=== PATIENT | male | born 2000 | race Caucasian/White ===

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

== ENCOUNTER → 2022-07-07 | Outpatient (CLI) | payer OTHER, SELFPAY ==
[2022-07-07 15:33] LABS: Hematocrit 42.5 % (40-54); Hemoglobin 13.8 g/dL (13.0-16.5); Mean Corp Hgb Conc 32.5 g/dL (32-36); Mean Corpuscular Hgb 29.9 pg (27.0-32.0); Mean Platelet Vol. 9.7 fl (6.2-12.0); Platelet Count 263 K/mm3 (150-450); RBC Distribution Width CV 12.1 % (11.6-14.6); RBC Distribution Width SD 41.1 fl (35.1-43.9); Red Blood Count 4.62 M/mm3 (4.6-6.2); White Blood Count 5.1 K/mm3 (4.4-11.0)
[2022-07-07 16:35] LABS: Anion Gap 4 (5-15); BUN 21 mg/dL (7-18); BUN/Creat Ratio 19.8 RATIO (10-20); Calcium,Total 9.5 mg/dL (8.5-10.1); Chloride 105 mmol/L (98-107); Creatinine, Serum 1.06 mg/dL (0.70-1.30); EST Glomerular Filtration Rate 94 mL/min (>60); Est Glom Filt Rate - Afr Amer 114 mL/min (>60); Ferritin 19 ng/mL (26-388); Glucose 87 mg/dL (74-106); Iron 67 ug/dL (65-175); Magnesium 2.3 mg/dL (1.6-2.6); Potassium 4.2 mmol/L (3.5-5.1); Sodium Level 139 mmol/L (136-145); Thyroid Stim Hormone (TSH) 1.73 uIU/mL (0.358-3.74)
== END | disposition home or self-care (01) ==
LOC: MFPLAB 13:43
PROVIDERS: PCP Family Medicine; Visit Provider Family Medicine
DX: R00.2 Palpitations (principal); D64.9 Anemia, unspecified
CPT/HCPCS: 36415; 80048; 82728; 83540; 83735; 84443; 85027

== ENCOUNTER → 2023-01-18 | Outpatient (CLI) | payer OTHER, SELFPAY ==
[2023-01-18 15:40] LABS: Hematocrit 44.2 % (40-54); Hemoglobin 14.2 g/dL (13.0-16.5); Mean Corp Hgb Conc 32.1 g/dL (32-36); Mean Corpuscular Hgb 30.1 pg (27.0-32.0); Mean Corpuscular Volume 93.8 fL (80-94); Mean Platelet Vol. 10.2 fl (6.2-12.0); Platelet Count 263 K/mm3 (150-450); RBC Distribution Width CV 11.9 % (11.6-14.6); RBC Distribution Width SD 41.1 fl (35.1-43.9); Red Blood Count 4.71 M/mm3 (4.6-6.2); White Blood Count 4.4 K/mm3 (4.4-11.0)
[2023-01-18 16:09] LABS: Ferritin 17 ng/mL (26-388)
== END | disposition home or self-care (01) ==
PROVIDERS: PCP Family Medicine; Referring Provider Family Medicine; Visit Provider Family Medicine
DX: D64.9 Anemia, unspecified (principal)
CPT/HCPCS: 36415; 82728; 85027

== ENCOUNTER → 2023-06-27 | Outpatient (CLI) | payer OTHER, SELFPAY ==
[2023-06-27 17:39] LABS: Absolute Lymphocyte Count 1.72 X10^3/uL (0.83-4.51); Absolute Neutrophil Count 2.7 X10^3/uL (2.0-7.7); Basophil# 0.03 X10^3/uL; Basophil% 0.6 % (0-1); Eosinophil# 0.06 X10^3/uL; Eosinophils% 1.2 % (0-5); Hematocrit 42.8 % (40-54); Hemoglobin 13.7 g/dL (13.0-16.5); Lymphocyte # 1.72 X10^3/ul (0.83-4.51); Lymphocyte % 34.6 % (19-41); Mean Corpuscular Hgb 29.7 pg (27.0-32.0); Mean Corpuscular Volume 92.6 fL (80-94); Mean Platelet Vol. 9.5 fl (6.2-12.0); Monocyte# 0.47 X10^3/uL; Monocyte% 9.5 % (0-10); NRBC Flagged by Analyzer 0 % (0-5); Neutrophil # 2.68 X10^3/uL (2.7-7.7); Neutrophil % 53.9 % (47-70); Platelet Count 276 K/mm3 (150-450); RBC Distribution Width CV 12.3 % (11.6-14.6); RBC Distribution Width SD 41.8 fl (35.1-43.9); Red Blood Count 4.62 M/mm3 (4.6-6.2)
[2023-06-27 17:47] LABS: Ferritin 25 ng/mL (26-388); Iron 98 ug/dL (65-175)
== END | disposition home or self-care (01) ==
LOC: MFPLAB 16:46
PROVIDERS: PCP Family Medicine; Visit Provider Family Medicine
DX: D64.9 Anemia, unspecified (principal)
CPT/HCPCS: 36415; 82728; 83540; 85025

== ENCOUNTER → 2024-01-22 | Outpatient (CLI) | payer OTHER, SELFPAY ==
[2024-01-22 17:47] LABS: Hematocrit 42.4 % (40-54); Mean Corpuscular Hgb 30.7 pg (27.0-32.0); Mean Platelet Vol. 9.6 fl (6.2-12.0); Platelet Count 272 K/mm3 (150-450); RBC Distribution Width CV 11.9 % (11.6-14.6); RBC Distribution Width SD 40.7 fl (35.1-43.9); Red Blood Count 4.56 M/mm3 (4.6-6.2); White Blood Count 4.8 K/mm3 (4.4-11.0)
[2024-01-22 18:06] LABS: Ferritin 35 ng/mL (26-388); Iron 75 ug/dL (65-175)
[2024-01-24 17:08] LABS: Deamidated Gliadin IgA 4 units (0-19); Deamidated Gliadin IgG 2 units (0-19); Endomysial Antibody IgA Negative (Negative); Immunoglobulin A 204 mg/dL (90-386); t-Transglutaminase IgA <2 U/mL (0-3)
== END | disposition home or self-care (01) ==
LOC: MFPLAB 15:27
PROVIDERS: PCP Family Medicine; Visit Provider Family Medicine
DX: Z02.5 Encounter for examination for participation in sport (principal); D64.9 Anemia, unspecified
CPT/HCPCS: 36415; 82728; 82784; 83516; 83540; 85027; 86255

== ENCOUNTER → 2025-01-29 | Outpatient (CLI) | payer OTHER, SELFPAY ==
[2025-01-29 17:50] LABS: Hematocrit 42.3 % (40-54); Hemoglobin 14.1 g/dL (13.0-16.5); Immature Granulocytes Count 0.010 X10^3/uL (0.0-0.0); Mean Corp Hgb Conc 33.3 g/dL (32-36); Mean Corpuscular Volume 91.8 fL (80-94); Mean Platelet Vol. 9.4 fl (6.2-12.0); NRBC Flagged by Analyzer 0 % (0-5); Platelet Count 280 K/mm3 (150-450); RBC Distribution Width CV 12.1 % (11.6-14.6); RBC Distribution Width SD 40.5 fl (35.1-43.9); Red Blood Count 4.61 M/mm3 (4.6-6.2); White Blood Count 6.2 K/mm3 (4.4-11.0)
[2025-01-29 19:04] LABS: Ferritin 41 ng/mL (37-417)
--- OUTSIDE RECORDS SUMMARY | 2025-01-29 21:09 | XMS RPT_ITS | CCD ---
Author Organization [facility] ion Partnership [facility] Care Team Providers Care Classroom Instructional Aide Name Role Phone Yesenia Coleman Primary Care Provider YESENIA COLEMAN Primary Care Unavailab ANGELINE Son Attending Unavailable Prashanth Shaffer Primary Care Unavailable Prashanth Shaffer Attending Unavailable Prashanth Shaffer Primary Care Unavailable Prashanth Shaffer Attending Unavailable Allergies Allergy Classification Reported Allergen(s) Allergy Type Date of Onset Reaction(s) Facility (3 sources) Seasonal allergy; Translations: [SEASONAL ALLERGIES] Propensity to adverse reactions 03-17-2009 Intolerance [facility] Work Phone: Medications Current Medications Medication Drug Class(es) Dates Sig (Normalized) Sig (Original) azithromycin 500 mg oral tablet (1 source) Macrolide Antimicrobial Start: 04-29-2023 End: 05-04-2023 take 1 tablet by mouth once daily azithromycin (ZITHROMAX) 500 mg tablet Indications: Bronchitis Take 1 tablet by mouth once daily for 5 days. 5 tablet 0 04/29/2023 05/04/2023 Active Comment on above: Take 1 tablet by [facility] once daily for 5 days. cetirizine hydrochloride 10 mg oral tablet (2 sources) Histamine-1 Receptor Antagonist Start: 04-26-2017 take 1 tablet by mouth once daily Cetirizine (Zyrtec) 10 MG tablet Active 10 MG PO DAILY April 25, 2017 11:00pm dexamethasone 4 mg oral tablet (1 source) Corticosteroid Start: 04-29-2023 End: 05-03-2023 take 1 tablet by mouth once daily dexAMETHasone (DECADRON) 4 mg tablet Indications: Bronchitis Take 1 tablet by mouth once daily for 4 days. 4 tablet 0 04/29/2023 05/03/2023 Active Comment on above: Take 1 tablet by david th once daily for 4 days. Completed/Discontinued Medications Medication Drug Class(es) Dates Sig (Normalized) Sig (Original) [id number] actuat albuterol 0.09 mg/actuat metered dose inhaler (4 sources) beta2-Adrenergic Agonist Start: 11-20-2015 take 2 puff(s) by inhalation every four hours as needed for wheezing albuterol HFA (VENTOLIN HFA) 90 mcg/actuation inhaler Indications: Sinobronchitis Inhale 2 Puffs as instructed every 4 hours as needed for Wheezing/Shortness of Breath. 1 Inhaler 0 11/20/2015 Active ALBUTEROL INHALA TION Inhale as instructed. 0 Active Comment on above: Inhale as instructed . Inhale 2 Puffs as in structed every 4 hours as needed for Wheezing/Shortness of Breath. PEDIATRIC MULTIVITAMIN COMB#30 (GUMMIES CHILDREN MULTIVITAMIN ORAL) (2 sources) take 3 tablets by mouth once daily PEDIATRIC MULTIVITAMIN COMB#30 (GUMMIES CHILDREN MULTIVITAMIN ORAL) Take 3 tablets by mouth once daily. 0 Active Comment on above: Take 3 tablets by mo wih once daily. sertraline 50 mg oral tablet (2 sources) Serotonin Reuptake Inhibitor take 1 tablet by mouth once daily sertraline (ZOLOFT) 50 mg tablet Take 50 mg by mouth once daily. 0 Active Comment on above: Take 50 mg by mouth once daily. Problems Active Problems Problem Classification Problem Date Documented Date Episodic/Chronic Administrative/social admission (1 source) Encounter for examination for participation in sport; Translations: [Encounter for examination for participation in sport] Onset: 02-12-2024 Episodic Chronic obstructive pulmonary disease and bronchiectasis (2 sources) Bronchitis; Translations: [Bronchitis, not specified as acute or chronic] Onset: 04-29-2023 04-29-2023 Episodic Past or Other Problems Problem Classification Problem Date Documented Da te Episodic/Chronic Deficiency and other anemia (1 source) Anemia, unspecified; Translations: [Anemia, unspecified] Onset: 07-01-2023 Episodic Results Test Name Value Interpretation Reference Range Facility Celiac AB,Comprehensiveon ANTIGLIADIN IGA 4 units Normal 0-19 [facility] Comment on above: Order Comment: Order Date: 06/28/23 Order Info: 075- - CELAB Result Comment: Nega tive 0 - 19 Weak Positive 20 - 30 Moderate to Strong Positive >30 Performed By: #### L 3410.2350, L503.6550, L503.6150 #### [facility] [address] [place], [place], [id number] ANTIGLIADIN IGG 2 units Normal 0-19 [facility] Comment on above: Order Comment: Order Date: 06/28/23 Order Info: 075- - CELAB Result Comment: Nega tive 0 - 19 Weak Positive 20 - 30 Moderate to Strong Positive >30 Performed By: #### L 3410.2350, L503.6550, L503.6150 #### [facility] [address] [place], [address] ENDOMYSIAL IGA Negative Normal Negative [facility] Comment on above: Order Comment: Order Date: 06/28/23 Order Info: 075- - CELAB Performed By: #### L 3410.2350, L503.6550, L503.6150 #### [facility] [address] [place], [address] IMMUNOGLOB A QN 204 mg/dL Normal 90-386 [facility] Comment on above: Order Comment: Order Date: 06/28/23 Order Info: 075- - CELAB Result Comment: Perf ormed at: - [facility] [id number] Wet Process Miller: Vimal Neri PhD, Phone: [phone] Performed By: #### L 3410.2350, L503.6550, [id number] #### [facility] [address] [place], [address] tTG IGA <2 Normal 0-3 [facility] Comment on above: Order Comment: Order Date: 06/28/23 Order Info: 075-1 - CELAB Result Comment: Nega tive 0 - 3 Weak Positive 4 - 10 Positive >10 Tissue Transglutaminase (tTG) has been identified as the endomysial antigen. Studies have demonstr- ated that endomysial IgA antibodies have over 99% specificity for gluten sensitive enteropathy. Performed By: #### L 3410.2350, L503.6550, L503.6150 #### [facility] [address] [place], [place], [id number] tTG IGG 3 U/mL Normal 0-5 [facility] Comment on above: Order Comment: Order Date: 06/28/23 Order Info: [id number] - CELAB Result Comment: Nega tive 0 - 5 Weak Positive 6 - 9 Positive >9 Performed By: #### L 3410.2350, L503.6550, L503.6150 #### [facility] [address] [place], [place], [id number] CBC-Complete Blood Cnt No Di ffon 01-22-2024 Erythrocyte distribution width (RBC) [Ratio] 11.9 % Normal 11.6-14.6 [facility] Comment on above: Order Comment: Order Date: 01/22/24 Order Info: [id number] - CBC Performed By: #### L 100.0500 #### [facility] [address] [place], [address] Hematocrit (Bld) [Volume fraction] 42.4 % Normal 40-54 [facility] Comment on above: Order Comment: Order Date: 01/22/24 Order Info: [id number] - CBC Performed By: #### L 100.0500 #### [facility] [address] [place], [address] Hemoglobin (Bld) [Mass/Vol] 14.0 g/dL Normal 13.0-16.5 [facility] Comment on above: Order Comment: Order Date: 01/22/24 Order Info: [id number] - CBC Performed By: #### L 100.0500 #### [facility] [address] [place], [address] MCH (RBC) [Entitic mass] 30.7 pg Normal 27.0-32.0 [facility] Comment on above: Order Comment: Order Date: 01/22/24 Order Info: [id number] - CBC Performed By: #### L 100.0500 #### [facility] [address] [place], [address] MCHC (RBC) [Mass/Vol] 33.0 g/dL Normal 32-36 [facility] Comment on above: Order Comment: Order Date: 01/22/24 Order Info: [id number] - CBC Performed By: #### L 100.0500 #### [facility] [address] [place], [address] MCV (RBC) [Entitic vol] 93.0 fL Normal 80-94 [facility] Comment on above: Order Comment: Order Date: 01/22/24 Order Info: [id number] - CBC Performed By: #### L 100.0500 #### [facility] [address] [place], [address] Platelet mean volume (Bld) [Entitic vol] 9.6 fL Normal 6.2-12.0 [facility] Comment on above: Order Comment: Order Date: 01/22/24 Order Info: [id number] - CBC Performed By: #### L 100.0500 #### [facility] [address] [place], [address] Platelets (Bld) [#/Vol] 272 10*3/uL Normal 150-450 [facility] Comment on above: Order Comment: Order Date: 01/22/24 Order Info: [id number] - CBC Performed By: #### L 100.0500 #### [facility] [address] [place], [address] RBC (Bld) [#/Vol] 4.56 10*6/uL Low 4.6-6.2 [facility] Comment on above: Order Comment: Order Date: 01/22/24 Order Info: [id number] - CBC Performed By: #### L 100.0500 #### [facility] [address] [place], [address] RDW SD 40.7 fl Normal 35.1-43.9 [facility] Comment on above: Order Comment: Order Date: 01/22/24 Order Info: [id number] - CBC Performed By: #### L 100.0500 #### [facility] [address] [place], [address] WBC (Bld) [#/Vol] 4.8 10*3/uL Normal 4.4-11.0 [facility] Comment on above: Order Comment: Order Date: 01/22/24 Order Info: [id number] - CBC Performed By: #### L 100.0500 #### [facility] [address] [place], [address] Ferritinon 01-22-2024 Ferritin [Mass/Vol] 35 ng/mL Normal 26-388 [facility] Comment on above: Order Comment: Order Date: 06/28/23 Order Info: [id number] - FE Order Date: 01/22/24 Order Info: [id number] - STEVENSON Performed By: #### L 3410.2350, L503.6550, L503.6150 #### [facility] [address] [place], [address] Ironon 01-22-2024 Iron [Mass/Vol] 75 ug/dL Normal 65-175 [facility] Comment on above: Order Comment: Order Date: 06/28/23 Order Info: [id number] - FE Order Date: 01/22/24 Order Info: [id number] - STEVENSON Performed By: #### L 3410.2350, L503.6550, L503.6150 #### [facility] [address] [place], [address] VARISon 10-24-[address] Positive Normal [facility] ([place]) Comment on above: Result Comment: INTE RPRETATION OF VARICELLA IMMUNE STATUS IgG BY EIA: Negative: No detectable VZV IgG antibody. Positive: VZV IgG antibody Detected. If clinically indicated, order Varicella IgM to rule out recent infection. Equivocal: Equivocal for antibodies to VZV. Suggest repeat testing in 10-14 days. Performed By: #### V MANFRED, HBSAB #### [address] [address] HBSABon 10-21-2023 Hep B Surf Ab 14.3 mIU/mL Normal >=10.0 [facility] ([place]) Comment on above: Result Comment: 0 to < 10.0 mIU/mL Nonreactive Patient is considered not to have protective immunity to HBV infection >/= 10.0 mIU/mL Reactive Patient is considered to have protective immunity to HBV infection. This assay is traceable to the World Health Organization (WHO) Hepatitis B Immunoglobulin 1st International Reference Preparation (1976). The accepted criteria for immunity to HBV is anti-HBs activity >/= 10.0 mIU/mL, as defined by the WHO International Reference Preparation. Performed By: #### V MANFRED, HBSAB #### [address] [address] Absolute lymphocyte countOrd ered By: Juno Shaffer on 06-27-2023 Lymphocytes Auto (Unsp spec) [#/Vol] 1.72 10*3/uL 0.83-4.51 [facility] Basophil percentageOrdered B y: Juno Shaffer on 06-27-2023 Basophils/100 WBC (Bld) 0.6 % 0-1 [facility] Eosinophils/100 WBC (Bld) 1.2 % 0-5 [facility] Neutrophils (Bld) [#/Vol] 2.7 10*3/uL 2.0-7.7 [facility] Neutrophils/100 WBC (Bld) 53.9 % 47-70 [facility] WBC (Bld) [#/Vol] 5.0 10*3/uL 4.4-11.0 [facility] Blood erythrocytes count (nu mber/volume)Ordered By: Juno Shaffer on 06-27-2023 RBC (Bld) [#/Vol] 4.62 10*6/uL 4.6-6.2 [facility] Blood hemoglobin measurement (mass/volume)Ordered By: Jnuo Shaffer on 06-27-2023 Hemoglobin (Bld) [Mass/Vol] 13.7 g/dL 13.0-16.5 [facility] Blood lymphocytes/100 leukoc ytesOrdered By: Juno Shaffer on 06-27-2023 Lymphocytes/100 WBC (Bld) 34.6 % 19-41 [facility] Blood monocytes/100 leukocyt esOrdered By: Juno Shaffer on 06-27-2023 Monocytes/100 WBC (Bld) 9.5 % 0-10 [facility] Blood platelet mean volumeOr dered By: Juno Shaffer on 06-27-2023 Platelet mean volume (Bld) [Entitic vol] 9.5 fL 6.2-12.0 [facility] CBC W/Diff, Automatedon - Absolute Lymph 1.72 X10 3/uL Normal 0.83-4.51 [facility] Comment on above: Order Comment: Order Date: 06/27/23 Order Info: [id number] - CBCD Performed By: #### L 503.6550, L100.0100, L503.6150 #### [facility] [address] [place], [address] Absolute Neut 2.7 X10 3/uL Normal 2.0-7.7 [facility] Comment on above: Order Comment: Order Date: 06/27/23 Order Info: 0184-1 - CBCD Performed By: #### L 503.6550, L100.0100, L503.6150 #### [facility] [address] [place], [address] Basophils/100 WBC (Bld) 0.6 % Normal 0-1 [facility] Comment on above: Order Comment: Order Date: 06/27/23 Order Info: 0184-1 - CBCD Performed By: #### L 503.6550, L100.0100, L503.6150 #### [facility] [address] [place], [address] Eosinophils/100 WBC (Bld) 1.2 % Normal 0-5 [facility] Comment on above: Order Comment: Order Date: 06/27/23 Order Info: 0184- - CBCD Performed By: #### L 503.6550, L100.0100, L503.6150 #### [facility] [address] [place], [address] Erythrocyte distribution width (RBC) [Ratio] 12.3 % Normal 11.6-14.6 [facility] Comment on above: Order Comment: Order Date: 06/27/23 Order Info: 018- - CBCD Performed By: #### L 503.6550, L100.0100, L503.6150 #### [facility] [address] [place], [address] Hematocrit (Bld) [Volume fraction] 42.8 % Normal 40-54 [facility] Comment on above: Order Comment: Order Date: 06/27/23 Order Info: 0184- - CBCD Performed By: #### L 503.6550, L100.0100, L503.6150 #### [facility] [address] [place], [address] Hemoglobin (Bld) [Mass/Vol] 13.7 g/dL Normal 13.0-16.5 [facility] Comment on above: Order Comment: Order Date: 06/27/23 Order Info: 0184- - CBCD Performed By: #### L 503.6550, L100.0100, L503.6150 #### [facility] [address] [place], [address] IG% 0.200 Normal 0.0-0.9 [facility] Comment on above: Order Comment: Order Date: 06/27/23 Order Info: 0184-1 - CBCD Result Comment: IG% - Immature Granulocytes (promyelocytes, myelocytes and metamyelocytes) > 1% indicates that a LEFT SHIFT is Present. Performed By: #### L 503.6550, L100.0100, L503.6150 #### [facility] [address] [place], [address] Lymphocytes/100 WBC (Bld) 34.6 % Normal 19-41 [facility] Comment on above: Order Comment: Order Date: 06/27/23 Order Info: 018- - CBCD Performed By: #### L 503.6550, L100.0100, L503.6150 #### [facility] [address] [place], [address] MCH (RBC) [Entitic mass] 29.7 pg Normal 27.0-32.0 [facility] Comment on above: Order Comment: Order Date: 06/27/23 Order Info: 018- - CBCD Performed By: #### L 503.6550, L100.0100, L503.6150 #### [facility] [address] [place], [address] MCHC (RBC) [Mass/Vol] 32.0 g/dL Normal 32-36 [facility] Comment on above: Order Comment: Order Date: 06/27/23 Order Info: 018- - CBCD Performed By: #### L 503.6550, L100.0100, L503.6150 #### [facility] [address] [place], [address] MCV (RBC) [Entitic vol] 92.6 fL Normal 80-94 [facility] Comment on above: Order Comment: Order Date: 06/27/23 Order Info: 018- - CBCD Performed By: #### L 503.6550, L100.0100, L503.6150 #### [facility] [address] [place], [address] Monocytes/100 WBC (Bld) 9.5 % Normal 0-10 [facility] Comment on above: Order Comment: Order Date: 06/27/23 Order Info: 0184-1 - CBCD Performed By: #### L 503.6550, L100.0100, L503.6150 #### [facility] [address] [place], [address] Neutrophils/100 WBC (Bld) 53.9 % Normal 47-70 [facility] Comment on above: Order Comment: Order Date: 06/27/23 Order Info: 0184-1 - CBCD Performed By: #### L 503.6550, L100.0100, L503.6150 #### [facility] [address] [place], [address] Nucleated RBC (Bld) [#/Vol] 0 10*3/uL Normal 0-5 [facility] Comment on above: Order Comment: Order Date: 06/27/23 Order Info: 018- - CBCD Performed By: #### L 503.6550, L100.0100, L503.6150 #### [facility] [address] [place], [address] Platelet mean volume (Bld) [Entitic vol] 9.5 fL Normal 6.2-12.0 [facility] Comment on above: Order Comment: Order Date: 06/27/23 Order Info: 018- - CBCD Performed By: #### L 503.6550, L100.0100, L503.6150 #### [facility] [address] [place], [address] Platelets (Bld) [#/Vol] 276 10*3/uL Normal 150-450 [facility] Comment on above: Order Comment: Order Date: 06/27/23 Order Info: 0184-1 - CBCD Performed By: #### L 503.6550, L100.0100, L503.6150 #### [facility] [address] [place], [address] RBC (Bld) [#/Vol] 4.62 10*6/uL Normal 4.6-6.2 [facility] Comment on above: Order Comment: Order Date: 06/27/23 Order Info: 0184-1 - CBCD Performed By: #### L 503.6550, L100.0100, L503.6150 #### [facility] [address] [place], [address] RDW SD 41.8 fl Normal 35.1-43.9 [facility] Comment on above: Order Comment: Order Date: 06/27/23 Order Info: 0184- - CBCD Performed By: #### L 503.6550, L100.0100, L503.6150 #### [facility] [address] [place], [address] WBC (Bld) [#/Vol] 5.0 10*3/uL Normal 4.4-11.0 [facility] Comment on above: Order Comment: Order Date: 06/27/23 Order Info: 0184- - CBCD Performed By: #### L 503.6550, L100.0100, L503.6150 #### [facility] [address] [place], [address] Determination of erythrocyte mean corpuscular volume (MCV)Ordered By: Juno Shaffer on 06-27-2023 MCV (RBC) [Entitic vol] 92.6 fL 80-94 [facility] Ferritinon 06-27-2023 Ferritin [Mass/Vol] 25 ng/mL Low 26-388 [facility] Comment on above: Order Comment: Order Date: 06/27/23 Order Info: [id number] - FE Order Info: [id number] - STEVENSON Performed By: #### L 503.6550, L100.0100, L503.6150 #### [facility] [address] [place], [address] Hematocrit Auto (Bld) [Volum e fraction]Ordered By: Juno Shaffer on 06-27-2023 Hematocrit (Bld) [Volume fraction] 42.8 % 40-54 [facility] Ironon 06-27-2023 Iron [Mass/Vol] 98 ug/dL Normal 65-175 [facility] Comment on above: Order Comment: Order Date: 06/27/23 Order Info: [id number] - FE Order Info: [id number] - STEVENSON Performed By: #### L 503.6550, L100.0100, L503.6150 #### [facility] [address] [place], [place], [id number] Iron measurement (mass/mass) Ordered By: Juno Shaffer on 06-27-2023 Iron (Unsp spec) [Mass/Mass] 98 ug/dL 65-175 [facility] - Hematology and Cell countsOrdered By: Juno Shaffer on 06-27-2023 Erythrocyte distribution width (RBC) [Entitic vol] 41.8 fL 35.1-43.9 [facility] Erythrocyte distribution width (RBC) [Ratio] 12.3 % 11.6-14.6 [facility] Immature granulocytes/100 WBC (Bld) 0.200 % 0.0-0.9 [facility] Comment on above: IG% - Immature Granu locytes (promyelocytes, myelocytes and metamyelocytes) > 1% indicates that a LEFT SHIFT is Present. MCH (RBC) [Entitic mass] 29.7 pg 27.0-32.0 [facility] Nucleated RBC/100 WBC (Bld) [Ratio] 0 % 0-5 [facility] MCHC Auto (RBC) [Mass/Vol]Or dered By: Juno Shaffer on 06-27-2023 MCHC (RBC) [Mass/Vol] 32.0 g/dL 32-36 [facility] Platelets bldOrdered By: Jared Shaffer on 06-27-2023 Platelets (Bld) [#/Vol] 276 10*3/uL 150-450 [facility] Serum or plasma ferritin dante surement (mass/volume)Ordered By: Juno Shaffer on 06-27-2023 Ferritin [Mass/Vol] 25 ng/mL 26-388 [facility] CNOVon 04-29-2023 CNOV Office Visit (MMAS ) SUAD WEBB ([id number]) 4 M Date Time Provider Department 04/29/23 2:45 PM ANGELINE KELLEY During your visit today, we recorded the following information about you: Temperature Pulse Respiration Blood pressure 97.8 degrees 45/minute 16/minute 110/68 Weight 69.4 kg Angeline Kelley DO 04/29/2023 4:38 PM Signed Suad Webb is a 23 year old MALE who presents with Nasal Congestion (Chest congestion heavy chest head ache 3 days notices increased labor in breathing when running ) HPI PAST MEDICAL HISTORY Diagnosis Date NEGATIVE MEDICAL HISTORY PMH - PAST MEDICAL HISTORY OF Normal Color Vision There is no problem list on file for this patient. Current Outpatient Medications Medication Sig Dispense Refill azithromycin (ZITHROMAX) 500 mg tablet Take 1 tablet by mouth once daily for 5 days. 5 tablet 0 dexAMETHasone (DECADRON) 4 mg tablet Take 1 tablet by mouth once daily for 4 days. 4 tablet 0 sertraline (ZOLOFT) 50 mg tablet Take 50 mg by mouth once daily. (Patient not taking: Reported on 04/29/2023) ALBUTEROL INHALATION Inhale as instructed. (Patient not taking: Reported on 04/29/2023) albuterol HFA (VENTOLIN HFA) 90 mcg/actuation inhaler Inhale 2 Puffs as instructed every 4 hours as needed for Wheezing/Shortness of Breath. (Patient not taking: Reported on 04/29/2023) 1 Inhaler 0 PEDIATRIC MULTIVITAMIN COMB#30 (GUMMIES CHILDREN MULTIVITAMIN ORAL) Take 3 tablets by mouth once daily. (Patient not taking: Reported on 04/29/2023) No current facility-administered medications for this visit. Social History Tobacco Use Smoking status: Never Smokeless tobacco: Never Substance Use Topics Alcohol use: No Drug use: No Alcohol Use: No Tobacco Use: Never FAMILY HISTORY Problem Relation Age of Onset Cancer Paternal Grandmother COLON - Review of Systems Constitutional: Positive for chills, fever and malaise/fatigue. HENT: Positive for congestion, sinus pain and sore throat. Respiratory: Positive for cough and sputum production. All other systems reviewed and are negative. BP 110/68 Pulse 45 Temp 97.8 Resp 16 Wt 153 lb (69.4kg) SpO2 100% Physical Exam Vitals and nursing note reviewed. Constitutional: Appearance: Normal appearance. HENT: Head: Normocephalic. Right Ear: Tympanic membrane normal. Left Ear: Tympanic membrane normal. Nose: Congestion and rhinorrhea present. Mouth/Throat: Pharynx: Posterior oropharyngeal erythema present. Eyes: Extraocular Movements: Extraocular movements intact. Pupils: Pupils are equal, round, and reactive to light. Cardiovascular: Rate and Rhythm: Normal rate and regular rhythm. Pulses: Normal pulses. Heart sounds: Normal heart sounds. Pulmonary: Breath sounds: Rhonchi present. Musculoskeletal: General: Normal range of motion. Lymphadenopathy: Cervical: Cervical adenopathy present. Skin: General: Skin is warm. Capillary Refill: Capillary refill takes 2 to 3 seconds. Neurological: General: No focal deficit present. ASSESSMENT/PLAN: 1. Bronchitis - ICD9: 490, ICD10: J40 - AZITHROMYCIN 500 MG TABLET - DEXAMETHASONE 4 MG TABLET Angeline Kelley Referring Provider: SELF [200] Allergies As of Date: 04/29/2023 Noted Allergy Reaction SEASONAL ALLERGIES 03/17/2009 5 - Intolerance Date Reviewed: 04/29/2023 Reviewed by: Angeline Kelley, DO - Fully Assessed Reason for Visit: Nasal Congestion [235] Cmt: Chest congestion heavy chest head ache 3 days notices increased labor in breathing when running Primary Visit Diagnosis:Bronchitis [J40] Order(s):azithromycin (ZITHROMAX) 500 mg tabletTake 1 tablet by mouth once daily for 5 days.Disp: 5 tabletRfl: 0 dexAMETHasone (DECADRON) 4 mg tabletTake 1 tablet by mouth once daily for 4 days.Disp: 4 tabletRfl: 0 Prescriptions as of 04/29/2023 - azithromycin (ZITHROMAX) 500 mg tablet Take 1 tablet by mouth once daily for 5 days. - dexAMETHasone (DECADRON) 4 mg tablet Take 1 tablet by mouth once daily for 4 days. - sertraline (ZOLOFT) 50 mg tablet Take 50 mg by mouth once daily. - ALBUTEROL INHALATION Inhale as instructed. - albuterol HFA (VENTOLIN HFA) 90 mcg/actuation inhaler Inhale 2 Puffs as instructed every 4 hours as needed for Wheezing/Shortness of Breath. - PEDIATRIC MULTIVITAMIN COMB#30 (GUMMIES CHILDREN MULTIVITAMIN ORAL) Take 3 tablets by mouth once daily. Meds Comments as of 03/17/2009: Problem List As Of Date: 04/29/2023 (None) Prescriptions ordered this encounter Disp Refills Start End AZITHROMYCIN 500 MG TABLET 5 ta* 0 04/29/2023 05/04/2023 Route: ORAL Sig: Take 1 tablet by mouth once daily for 5 days. DEXAMETHASONE 4 MG TABLET 4 ta* 0 04/29/2023 05/03/2023 Route: ORAL Sig: Take 1 tablet by mouth once daily for 4 days. Encounter Status: (more content not included)... Normal [facility] Basophil percentageOrdered B y: Dr. Shaffer on 07-07-2022 Chloride [Moles/Vol] 105 mmol/L 98-107 [facility] Glucose [Mass/Vol] 87 mg/dL 74-106 [facility] Potassium [Moles/Vol] 4.2 mmol/L 3.5-5.1 [facility] Sodium [Moles/Vol] 139 mmol/L 136-145 [facility] WBC (Bld) [#/Vol] 5.1 10*3/uL 4.4-11.0 [facility] Blood erythrocytes count (nu mber/volume)Ordered By: Dr. Shaffer on 07-07-2022 RBC (Bld) [#/Vol] 4.62 10*6/uL 4.6-6.2 [facility] Blood hemoglobin measurement (mass/volume)Ordered By: Dr. Shaffer on 07-07-2022 Hemoglobin (Bld) [Mass/Vol] 13.8 g/dL 13.0-16.5 [facility] Blood platelet mean volumeOr dered By: Dr. Shaffer on 07-07-2022 Platelet mean volume (Bld) [Entitic vol] 9.7 fL 6.2-12.0 [facility] Determination of erythrocyte mean corpuscular volume (MCV)Ordered By: Dr. Shaffer on 07-07-2022 MCV (RBC) [Entitic vol] 92.0 fL 80-94 [facility] Hematocrit Auto (Bld) [Volum e fraction]Ordered By: Dr. Shaffer on 07-07-2022 Hematocrit (Bld) [Volume fraction] 42.5 % 40-54 [facility] Iron measurement (mass/mass) Ordered By: Dr. Shaffer on 07-07-2022 Iron (Unsp spec) [Mass/Mass] 67 ug/dL 65-175 [facility] Laboratory - Chemistry and C hemistry - challengeOrdered By: Dr. Shaffer on 07-07-2022 CO2 [Moles/Vol] 30.0 mmol/L 21.0-32.0 [facility] Magnesium [Mass/Vol] 2.3 mg/dL 1.6-2.6 [facility] Urea nitrogen/Creatinine [Mass ratio] 19.8 mg/mg 10-20 [facility] Laboratory - Hematology and Cell countsOrdered By: Dr. Shaffer on 07-07-2022 Erythrocyte distribution width (RBC) [Entitic vol] 41.1 fL 35.1-43.9 [facility] Erythrocyte distribution width (RBC) [Ratio] 12.1 % 11.6-14.6 [facility] MCH (RBC) [Entitic mass] 29.9 pg 27.0-32.0 [facility] MCHC Auto (RBC) [Mass/Vol]Or dered By: Dr. Shaffer on 07-07-2022 MCHC (RBC) [Mass/Vol] 32.5 g/dL 32-36 [facility] No Panel InformationOrdered By: Dr. Shaffer on 07-07-2022 Estimated GFR (MDRD) Amer 114 mL/min >60 [facility] Comment on above: GFR Calc Estimated GFR (MDRD) Non-Af Amer 94 mL/min >60 [facility] Comment on above: Non- GFR Calc Thyroid Stimulating Hormone (TSH) 1.73 uIU/mL 0.358-3.74 [facility] Platelets bldOrdered By: Dr. Shaffer on 07-07-2022 Platelets (Bld) [#/Vol] 263 10*3/uL 150-450 [facility] Serum or plasma calcium abebe urement (mass/volume)Ordered By: Dr. Shaffer on 07-07-2022 Calcium [Mass/Vol] 9.5 mg/dL 8.5-10.1 [facility] Serum or plasma creatinine m easurement (mass/volume)Ordered By: Dr. Shaffer on 07-07-2022 Creatinine [Mass/Vol] 1.06 mg/dL 0.70-1.30 [facility] Comment on above: The validity of the calculated GFR & GFRAA in patients over 70 years has not been determined. Clinical correlation is essential. Serum or plasma ferritin dante surement (mass/volume)Ordered By: Dr. Shaffer on 07-07-2022 Ferritin [Mass/Vol] 19 ng/mL 26-388 [facility] Serum or plasma urea nitroge n measurement (mass/volume)Ordered By: Dr. Shaffer on 07-07-2022 Urea nitrogen [Mass/Vol] 21 mg/dL 7-18 [facility] Thin prep Papanicolaou smear with manual screeningOrdered By: Dr. Shaffer on 07-07-2022 Thin prep Papanicolaou smear with manual screening 4 5-15 [facility] Complete Blood Counton 12-17 Differential Complete Manual Normal [facility] Comment on above: Order Comment: With differential. Is this specimen being sent to an external lab?->No Release to patient->Automatic [id number]&Blood^\S\^Venous&Venous Performed By: #### C BC #### [place] [address] Erythrocyte distribution width (RBC) [Ratio] 12.1 % Normal 0.0-14.[address] [facility] Comment on above: Order Comment: With differential. Is this specimen being sent to an external lab?->No Release to patient->Automatic 37873&Blood^\S\^Venous&Venous Performed By: #### C BC #### [place] [address] Hematocrit (Bld) [Volume fraction] 43.8 % Normal 41.0-50.[address] [facility] Comment on above: Order Comment: With differential. Is this specimen being sent to an external lab?->No Release to patient->Automatic 91007&Blood^\S\^Venous&Venous Performed By: #### C BC #### [place] [id number] Hemoglobin (Bld) [Mass/Vol] 14.5 g/dL Normal 13.5-16.[address] [facility] Comment on above: Order Comment: With differential. Is this specimen being sent to an external lab?->No Release to patient->Automatic 57253&Blood^\S\^Venous&Venous Performed By: #### C BC #### [place] [address] Immature granulocytes/100 WBC (Bld) 0.30 % Normal [facility] Comment on above: Order Comment: With differential. Is this specimen being sent to an external lab?->No Release to patient->Automatic 64668&Blood^\S\^Venous&Venous Result Comment: Dinorah ture Granulocyte Percent includes promyelocytes, myelocytes, and metamyelocytes. IG% > 1.0 indicates a left shift is present. With automated differentials, bands are included in the neutrophil count and not in the Immature Granulocyte Percent. Performed By: #### C BC #### [place] [address] MCH (RBC) [Entitic mass] 29.7 pg Normal 26.0-34.[address] [facility] Comment on above: Order Comment: With differential. Is this specimen being sent to an external lab?->No Release to patient->Automatic 23064&Blood^\S\^Venous&Venous Performed By: #### C BC #### [address] [id number] MCHC 33.1 % Normal 31.0-37.[address] [facility] Comment on above: Order Comment: With differential. Is this specimen being sent to an external lab?->No Release to patient->Automatic 28930&Blood^\S\^Venous&Venous Performed By: #### C BC #### [address] [id number] MCV (RBC) [Entitic vol] 89.8 fL Normal 80.0-100.[address] [facility] Comment on above: Order Comment: With differential. Is this specimen being sent to an external lab?->No Release to patient->Automatic 78512&Blood^\S\^Venous&Venous Performed By: #### C BC #### [address] [address] Nucleated RBC/100 WBC (Bld) [Ratio] 0.0 % Normal -1.0-0.[address] [facility] Comment on above: Order Comment: With differential. Is this specimen being sent to an external lab?->No Release to patient->Automatic 69889&Blood^\S\^Venous&Venous Performed By: #### C BC #### [address] [address] Platelet mean volume (Bld) [Entitic vol] 9.7 fL Normal [facility] Comment on above: Order Comment: With differential. Is this specimen being sent to an external lab?->No Release to patient->Automatic 05836&Blood^\S\^Venous&Venous Result Comment: MPV is platelet range and age dependent Performed By: #### C BC #### [address] [address] Platelets (Bld) [#/Vol] 250 10*3/uL Normal 150-[address] [facility] Comment on above: Order Comment: With differential. Is this specimen being sent to an external lab?->No Release to patient->Automatic 53494&Blood^\S\^Venous&Venous Performed By: #### C BC #### [address] [id number] RBC 4.88 10E12/L Normal 4.50-5.[address] [facility] Comment on above: Order Comment: With differential. Is this specimen being sent to an external lab?->No Release to patient->Automatic 86183&Blood^\S\^Venous&Venous Performed By: #### C BC #### [place] [address] WBC (Bld) [#/Vol] 3.4 10*3/uL Low 4.5-11.[address] [facility] Comment on above: Order Comment: With differential. Is this specimen being sent to an external lab?->No Release to patient->Automatic 82968&Blood^\S\^Venous&Venous Performed By: #### C BC #### [place] [address] Ferritinon 12-17-2021 Ferritin [Mass/Vol] 40 ng/mL Normal 37-[address] [facility] Comment on above: Order Comment: TIBC will not be run. Is this specimen being sent to an external lab?->No Release to patient->Automatic 59233&Blood^\S\^Venous&Venous Performed By: #### F ERTN #### [place] [address] Manual Differentialon 2021 Absolute Neutrophil No. 1.3 10E3/uL Low 1.8-7.[address] [facility] Comment on above: Order Comment: With differential. Is this specimen being sent to an external lab?->No Release to patient->Automatic 22171&Blood^\S\^Venous&Venous Performed By: #### M DIFF #### [place] [address] Anisocytosis Slight Normal [facility] Comment on above: Order Comment: With differential. Is this specimen being sent to an external lab?->No Release to patient->Automatic 63542&Blood^\S\^Venous&Venous Performed By: #### M DIFF #### [place] [address] Band Neutrophils 0 % Low 5-[address] [facility] Comment on above: Order Comment: With differential. Is this specimen being sent to an external lab?->No Release to patient->Automatic 24804&Blood^\S\^Venous&Venous Performed By: #### M DIFF #### [address] [address] Eosinophils 3 % Normal 0-[address] [facility] Comment on above: Order Comment: With differential. Is this specimen being sent to an external lab?->No Release to patient->Automatic 52406&Blood^\S\^Venous&Venous Performed By: #### M DIFF #### [address] [address] Lymphocytes 54 % High 24-[address] [facility] Comment on above: Order Comment: With differential. Is this specimen being sent to an external lab?->No Release to patient->Automatic 73460&Blood^\S\^Venous&Venous Performed By: #### M DIFF #### [address] [address] Metamyelocytes 0 % Normal 0-[address] [facility] Comment on above: Order Comment: With differential. Is this specimen being sent to an external lab?->No Release to patient->Automatic 39974&Blood^\S\^Venous&Venous Performed By: #### M DIFF #### [address] [address] Monocytes 5 % Normal 3-[address] [facility] Comment on above: Order Comment: With differential. Is this specimen being sent to an external lab?->No Release to patient->Automatic 51502&Blood^\S\^Venous&Venous Performed By: #### M DIFF #### [address] [address] Myelocytes 0 % Normal 0-[address] [facility] Comment on above: Order Comment: With differential. Is this specimen being sent to an external lab?->No Release to patient->Automatic 19492&Blood^\S\^Venous&Venous Performed By: #### M DIFF #### [address] [address] Poikilocytosis Occasional Normal [facility] Comment on above: Order Comment: With differential. Is this specimen being sent to an external lab?->No Release to patient->Automatic 89340&Blood^\S\^Venous&Venous Performed By: #### M DIFF #### [address] [address] Promyelocytes 0 % Normal 0-[address] [facility] Comment on above: Order Comment: With differential. Is this specimen being sent to an external lab?->No Release to patient->Automatic 34189&Blood^\S\^Venous&Venous Performed By: #### M DIFF #### [place] [address] Segmented Neutrophils 38 % Normal 35-[address] [facility] Comment on above: Order Comment: With differential. Is this specimen being sent to an external lab?->No Release to patient->Automatic 30833&Blood^\S\^Venous&Venous Performed By: #### M DIFF #### [place] [address] Progress Noteon 12-17-2021 [employer] Authentication Interface Message Text Suad Webb is a 21 y.o. male patient. PHQ9 Assessment With Score Date/Time: 12/17/2021 10:06 AM Performed by: Teetee Hdez MD Authorized by: Teetee Hdez MD PHQ-9 See PHQ9 Flowsheet Feeling down, depressed, irritable or hopeless: Not at all Little interest or pleasure in doing things: Not at all Trouble falling or staying sleep, or sleeping too much: Not at all Poor appetite, weight loss, or overeating: Not at all Feeling tired or having little energy: Not at all Feeling bad about yourself - or feeling that you are a failure, or have let yourself or your family down: Not at all Trouble concentrating on things, like school work, reading or watching TV: Not at all Moving or speaking so slowly that other people could have noticed. Or the opposite - being so fidgety or restless that you were moving around a lot more than usual: Not at all Thoughts that you would be better off , or of hurting yourself in some way: Not at all In the past year have you felt depressed or sad most days, even if you felt OK sometimes?: No If you are experiencing any of the problems on this form, how difficult have these problems made it for you to do your work, take care of things at home or get along with other people?: Not difficult at all Has there been a time in the past month when you have had serious thoughts about ending your life?: No Have you ever, in your whole life, tried to kill yourself or made a suicide attempt?: No PHQ-9 Manual Score: 0 PHQ-9 Total Score: 0 Health Risk Assessment - RUSSELL Date/Time: 12/17/2021 10:06 AM Authorized by: Teetee Hdez MD CRAFFT Results: 1. Drink more than a few sips of beer, wine, or any drink containing alcohol? Put 0 if none.: 0 2. Use any marijuana (weed, oil, or hash by smoking, vaping, or in food) or synthetic marijuana (like K2, Spice)? Put 0 if none.: 0 3. Use anything else to get high (like other illegal drugs, prescription or ncas-ibd-bothcjy medications, and things that you sniff, reynolds, or vape)? Put 0 if none.: 0 4. Use any tobacco or nicotine products (for example, cigarettes, e-cigarettes, hookahs or smokeless tobacco)?: 0 5. Have you ever ridden in a CAR driven by someone (including yourself) who was high or had been using alcohol or drugs?: No Electronically signed by: Teetee Hdez [facility] Suad Webb is a 21 y.o. male. His chief complaint(s) include: 21 YEAR WELL CHILD, sports physical, and Labs Need Ordered (FERRITIN/CBC URINALYSIS) Assessment 1. Routine general medical examination at a health care facility 2. Screening for condition 3. Symptoms involving urinary system Plan Suad was seen today for 21 year well child, sports physical and labs need ordered. Diagnoses and all orders for this visit: Routine general medical examination at a health care facility - PHQ9 Assessment With Score - Health Risk Assessment - CRAFFT Screening for condition - Complete Blood Count with Diff (Clinic Collect) - Ferritin (Clinic Collect) Symptoms involving urinary system - POCT urinalysis dipstick Growth and development reviewed Call for any questions/concerns/problems/ch omaira Return in about 1 year (around 12/17/2022) for well check. Subjective He is unaccompanied. 21 YEAR WELL CHILD Education: Suad is in sophomore year of college and is doing well. Eating: Suad eats regular meals including fruits and vegetables. Activities & Sports: Suad has friends, has a job, plays competitive sports and plays recreational sports. Drugs: Suad does not use tobacco and does not use alcohol. Output Urine and Stool Pattern: Urine and Stool Pattern: Normal stool pattern, normal urine pattern. Sleep Sleeping Difficulty: no difficulty sleeping Screenings Previous Vaccine Reactions: No. Hearing Vision Concerns: The caregiver has no concerns about the patient's hearing. The caregiver has no concerns about the patient's vision. Primary Care Review of Systems Objective Vital Signs 12/17/21 0913 BP: 124/68 Pulse: 58 Weight: 65.3 kg Height: 177.8 cm Body mass index is 20.66 kg/m . Physical Exam Constitutional: He appears well. He is active. No distress. HENT: Head: Atraumatic. Ears: Right Ear: Tympanic membrane normal. Left Ear: Tympanic membrane normal. Mouth/Throat: Mucous membranes are moist. Eyes: Conjunctivae are normal. Cardiovascular: Normal rate and regular rhythm. Heart murmur not heard. Pulmonary/Chest: Breath sounds normal. There is normal air entry. Neurological: He is alert. Normal [facility] Progress Noteon 08-27-2021 [employer] Authentication Interface Message Text Patient ID: Suad Webb is a 21 y.o. male. His chief complaint(s) include: Nausea, Headache, and Cold Symptoms Assessment 1. Acute pharyngitis, unspecified etiology Plan Suad was seen today for nausea, headache and cold symptoms. Diagnoses and all orders for this visit: Acute pharyngitis, unspecified etiology - POCT ID NOW Rapid Strep A NAAT Return if symptoms worsen or fail to improve. COVID-19 PCR testing offered and declined. Supportive care reviewed. Get plenty of rest and fluids. Do not exercise with fever. Anticipatory guidance, including indications to seek repeat medical attention reviewed with expressed understanding. Subjective HPI Comments: Self swabbed for rapid test COVID-19 yesterday- was negative Has large track meet next week He is unaccompanied. Nausea This problem is new. The duration has been 6 days. The patient's symptoms have included fatigue, congestion, rhinorrhea, sore throat, cough and headaches (diffuse). The patient's symptoms have included no fever, no decreased appetite, no decreased fluid intake, no diarrhea and no vomiting. The previous interventions include ibuprofen. Headache Cold Symptoms Review of Systems HENT: Positive for headaches. Gastrointestinal: Positive for nausea. Objective Vital Signs 08/27/21 1454 Temp: 37.2 C (99 F) TempSrc: Temporal Weight: 65.1 kg There is no height or weight on file to calculate BMI. Physical Exam Nursing note reviewed. Constitutional: He appears well. He is active. No distress. HENT: Head: Atraumatic. Ears: Right Ear: Tympanic membrane normal. Left Ear: Tympanic membrane normal. Mouth/Throat: Mucous membranes are moist. Pharynx erythema (mild) present. Eyes: Conjunctivae and EOM are normal. Right eyelid exhibits no discharge. Left eyelid exhibits no discharge. Right conjunctiva is not injected. Left conjunctiva is not injected. Neck: Neck supple. Cardiovascular: Normal rate and regular rhythm. Pulmonary/Chest: Effort normal and breath sounds normal. There is normal air entry. Abdominal: Soft. Bowel sounds are normal. He exhibits no distension. There is no abdominal tenderness. Musculoskeletal: Cervical back: Neck supple. Lymphadenopathy: No right anterior cervical adenopathy present. No left anterior cervical adenopathy present. Neurological: He is alert. Skin: Skin is dry. Vitals reviewed: Temperature 37.2 C (99 F), temperature source Temporal, weight 65.[address] kg[address] [facility] MSCon 05-09-[address] [facility] REPORT Normal [facility] DATE OF SERVICE: 12/2020 REASON FOR VISIT: Sore throat. HISTORY OF PRESENT ILLNESS: This is a 21-year-old male complaining of sore throat, congestion, drainage which has been going on for the last 2 weeks. But in the last 3 days his symptoms have increased. He feels a lot of pressure and coughing up some mucus. Sometimes he feels some discomfort in his chest and also has headache. No shortness of breath. No vomiting or diarrhea. No change in taste and smell. REVIEW OF SYSTEMS: Normal. ALLERGIES: NKA. MEDICATIONS: None. PHYSICAL EXAMINATION: He is awake and alert. Not in distress. No dyspnea. Temperature 97.9, blood pressure 124/72, pulse 73, respirations 16, pulse ox 99% on room air. Pain score 0 out of 10. HEENT is remarkable for moderate nasal congestion. Throat was not injected. Mild postnasal drip. Mild paranasal sinus tenderness. Chest: Clear to auscultation. Heart: Regular, rate, and rhythm. ASSESSMENT: Acute sinusitis. [facility] PATIENT NAME: SUAD WEBB [address] [facility] [address] eVlasquez MEDICAL REC #: [id number] [place] [address] [facility] REPORT STATCARE PHYSICIAN PLAN: Clinical findings discussed with the patient in detail. I gave him amoxicillin 875 mg twice a day for 10 days with no refills. He can continue [id number] medication as needed. Drink a lot of fluids. Use saline nasal spray. Follow with his doctor. The patient understands and agreed. Dione Fitch MD [id number] [facility] File#: [id number] END OF DOCUMENT / CHANGE LOG FOLLOWS Last Edited By Elec. Signed By Dione Fitch MD #PAWPR Dione Fitch MD #[id number] on 05/12/2021 19:29 ET on 05/12/2021 19:29 ET Revision Number - 2 Verified/Reviewed by 05/12/211928 ELLIOTT [facility] PATIENT NAME: SUAD WEBB [address] [facility] [address] Velasquez MEDICAL REC #: [id number] [place] [address] [facility] REPORT STATCARE PHYSICIAN Normal [facility] Ferritinon 12-21-2020 Ferritin [Mass/Vol] 39 ng/mL Normal 18-[address] [facility] Comment on above: Order Comment: With differential. Release to patient->Automatic Is this specimen being sent to an external lab?->No 46715&Blood^\S\^Vein&Vein TIBC will not be run. Release to patient->Automatic Is this specimen being sent to an external lab?->No 81730&Blood^\S\^Vein&Vein Performed By: #### F ERTN #### [place] [id number] Complete Blood Counton 12-19 Differential Complete Automated Normal [facility] Comment on above: Order Comment: With differential. Release to patient->Automatic Is this specimen being sent to an external lab?->No 41170&Blood^\S\^Vein&Vein TIBC will not be run. Release to patient->Automatic Is this specimen being sent to an external lab?->No 14984&Blood^\S\^Vein&Vein Performed By: #### C BC #### [address] [address] Basophils/100 WBC (Bld) 0.70 % Normal 0.00-1.[address] [facility] Comment on above: Order Comment: With differential. Release to patient->Automatic Is this specimen being sent to an external lab?->No 40120&Blood^\S\^Vein&Vein TIBC will not be run. Release to patient->Automatic Is this specimen being sent to an external lab?->No 27923&Blood^\S\^Vein&Vein Performed By: #### C BC #### [facility] [address] [place] [address] Eosinophils/100 WBC (Bld) 1.60 % Normal 0.00-3.[address] [facility] Comment on above: Order Comment: With differential. Release to patient->Automatic Is this specimen being sent to an external lab?->No 87009&Blood^\S\^Vein&Vein TIBC will not be run. Release to patient->Automatic Is this specimen being sent to an external lab?->No 71884&Blood^\S\^Vein&Vein Performed By: #### C BC #### [facility] [address] [place] [address] Erythrocyte distribution width (RBC) [Ratio] 12.3 % Normal 0.0-14.[address] [facility] Comment on above: Order Comment: With differential. Release to patient->Automatic Is this specimen being sent to an external lab?->No 18430&Blood^\S\^Vein&Vein TIBC will not be run. Release to patient->Automatic Is this specimen being sent to an external lab?->No 77036&Blood^\S\^Vein&Vein Performed By: #### C BC #### [facility] [address] [place] [address] Hematocrit (Bld) [Volume fraction] 44.6 % Normal 36.0-47.[address] [facility] Comment on above: Order Comment: With differential. Release to patient->Automatic Is this specimen being sent to an external lab?->No 40089&Blood^\S\^Vein&Vein TIBC will not be run. Release to patient->Automatic Is this specimen being sent to an external lab?->No 39214&Blood^\S\^Vein&Vein Performed By: #### C BC #### [place] [address] Hemoglobin (Bld) [Mass/Vol] 15.1 g/dL Normal 13.0-15.[address] [facility] Comment on above: Order Comment: With differential. Release to patient->Automatic Is this specimen being sent to an external lab?->No 31105&Blood^\S\^Vein&Vein TIBC will not be run. Release to patient->Automatic Is this specimen being sent to an external lab?->No 57760&Blood^\S\^Vein&Vein Performed By: #### C BC #### [place] [address] Immature granulocytes/100 WBC (Bld) 0.50 % Normal [facility] Comment on above: Order Comment: With differential. Release to patient->Automatic Is this specimen being sent to an external lab?->No 65953&Blood^\S\^Vein&Vein TIBC will not be run. Release to patient->Automatic Is this specimen being sent to an external lab?->No 06837&Blood^\S\^Vein&Vein Result Comment: Dinorah ture Granulocyte Percent includes promyelocytes, myelocytes, and metamyelocytes. IG% > 1.0 indicates a left shift is present. With automated differentials, bands are included in the neutrophil count and not in the Immature Granulocyte Percent. Performed By: #### C BC #### [place] [address] Lymphocytes/100 WBC (Bld) 24.2 % Low 25.0-45.[address] [facility] Comment on above: Order Comment: With differential. Release to patient->Automatic Is this specimen being sent to an external lab?->No 13156&Blood^\S\^Vein&Vein TIBC will not be run. Release to patient->Automatic Is this specimen being sent to an external lab?->No 03798&Blood^\S\^Vein&Vein Performed By: #### C BC #### [address] [id number] MCH (RBC) [Entitic mass] 31.2 pg Normal 25.0-35.[address] [facility] Comment on above: Order Comment: With differential. Release to patient->Automatic Is this specimen being sent to an external lab?->No 84363&Blood^\S\^Vein&Vein TIBC will not be run. Release to patient->Automatic Is this specimen being sent to an external lab?->No 78131&Blood^\S\^Vein&Vein Performed By: #### C BC #### [place] [address] MCHC 33.9 % Normal 31.0-37.[address] [facility] Comment on above: Order Comment: With differential. Release to patient->Automatic Is this specimen being sent to an external lab?->No 50802&Blood^\S\^Vein&Vein TIBC will not be run. Release to patient->Automatic Is this specimen being sent to an external lab?->No 90149&Blood^\S\^Vein&Vein Performed By: #### C BC #### [place] [address] MCV (RBC) [Entitic vol] 92.1 fL Normal 78.0-96.[address] [facility] Comment on above: Order Comment: With differential. Release to patient->Automatic Is this specimen being sent to an external lab?->No 75234&Blood^\S\^Vein&Vein TIBC will not be run. Release to patient->Automatic Is this specimen being sent to an external lab?->No 56409&Blood^\S\^Vein&Vein Performed By: #### C BC #### [address] [id number] Monocytes/100 WBC (Bld) 10.60 % High 3.00-6.[address] [facility] Comment on above: Order Comment: With differential. Release to patient->Automatic Is this specimen being sent to an external lab?->No 78079&Blood^\S\^Vein&Vein TIBC will not be run. Release to patient->Automatic Is this specimen being sent to an external lab?->No 80346&Blood^\S\^Vein&Vein Performed By: #### C BC #### [place] [address] Neutrophils (Bld) [#/Vol] 2.7 10*3/uL Normal 1.8-7.[address] [facility] Comment on above: Order Comment: With differential. Release to patient->Automatic Is this specimen being sent to an external lab?->No 84964&Blood^\S\^Vein&Vein TIBC will not be run. Release to patient->Automatic Is this specimen being sent to an external lab?->No 13656&Blood^\S\^Vein&Vein Performed By: #### C BC #### [place] [address] Neutrophils/100 WBC (Bld) 62.4 % Normal 34.0-64.[address] [facility] Comment on above: Order Comment: With differential. Release to patient->Automatic Is this specimen being sent to an external lab?->No 05288&Blood^\S\^Vein&Vein TIBC will not be run. Release to patient->Automatic Is this specimen being sent to an external lab?->No 90339&Blood^\S\^Vein&Vein Performed By: #### C BC #### [place] [address] Nucleated RBC/100 WBC (Bld) [Ratio] 0.0 % Normal -1.0-0.[address] [facility] Comment on above: Order Comment: With differential. Release to patient->Automatic Is this specimen being sent to an external lab?->[place] 89178&Blood^\S\^Vein&Vein TIBC will not be run. Release to patient->Automatic Is this specimen being sent to an external lab?->No 27993&Blood^\S\^Vein&Vein Performed By: #### C BC #### [address] [address] Platelet mean volume (Bld) [Entitic vol] 9.5 fL Normal [facility] Comment on above: Order Comment: With differential. Release to patient->Automatic Is this specimen being sent to an external lab?->No 06845&Blood^\S\^Vein&Vein TIBC will not be run. Release to patient->Automatic Is this specimen being sent to an external lab?->No 63851&Blood^\S\^Vein&Vein Result Comment: MPV is platelet range and age dependent Performed By: #### C BC #### [place] [address] Platelets (Bld) [#/Vol] 296 10*3/uL Normal 150-[address] [facility] Comment on above: Order Comment: With differential. Release to patient->Automatic Is this specimen being sent to an external lab?->No 51451&Blood^\S\^Vein&Vein TIBC will not be run. Release to patient->Automatic Is this specimen being sent to an external lab?->No 47078&Blood^\S\^Vein&Vein Performed By: #### C BC #### [place] [address] RBC 4.84 10E12/L Normal 4.50-5.[address] [facility] Comment on above: Order Comment: With differential. Release to patient->Automatic Is this specimen being sent to an external lab?->No 43255&Blood^\S\^Vein&Vein TIBC will not be run. Release to patient->Automatic Is this specimen being sent to an external lab?->No 88659&Blood^\S\^Vein&Vein Performed By: #### C BC #### [address] [id number] WBC (Bld) [#/Vol] 4.3 10*3/uL Low 4.5-13.[address] [facility] Comment on above: Order Comment: With differential. Release to patient->Automatic Is this specimen being sent to an external lab?->No 71250&Blood^\S\^Vein&Vein TIBC will not be run. Release to patient->Automatic Is this specimen being sent to an external lab?->No 13846&Blood^\S\^Vein&Vein Performed By: #### C BC #### [place] [address] Progress Noteon 12-19-2020 [employer] Authentication Interface Message Text Suad Webb is a 20 y.o. male patient. Health Risk Assessment - CRAFFT Authorized by: Yesenia Coleman MD CRAFFT Results: 1. Drink more than a few sips of beer, wine, or any drink containing alcohol? Put 0 if none.: 0 2. Use any marijuana (weed, oil, or hash by smoking, vaping, or in food) or synthetic marijuana (like K2, Spice)? Put 0 if none.: 0 3. Use anything else to get high (like other illegal drugs, prescription or ebcn-cez-wclohod medications, and things that you sniff, reynolds, or vape)? Put 0 if none.: 0 4. Use any tobacco or nicotine products (for example, cigarettes, e-cigarettes, hookahs or smokeless tobacco)?: 0 5. Have you ever ridden in a CAR driven by someone (including yourself) who was high or had been using alcohol or drugs?: No PHQ9 Assessment With Score Performed by: Yesenia Coleman MD Authorized by: Yesenia Coleman MD PHQ-9 See PHQ9 Flowsheet Feeling down, depressed, irritable or hopeless: Not at all Little interest or pleasure in doing things: Not at all Trouble falling or staying sleep, or sleeping too much: Not at all Poor appetite, weight loss, or overeating: Not at all Feeling tired or having little energy: Not at all Feeling bad about yourself - or feeling that you are a failure, or have let yourself or your family down: Not at all Trouble concentrating on things, like school work, reading or watching TV: Not at all Moving or speaking so slowly that other people could have noticed. Or the opposite - being so fidgety or restless that you were moving around a lot more than usual: Not at all Thoughts that you would be better off , or of hurting yourself in some way: Not at all In the past year have you felt depressed or sad most days, even if you felt OK sometimes?: No If you are experiencing any of the problems on this form, how difficult have these problems made it for you to do your work, take care of things at home or get along with other people?: Not difficult at all Has there been a time in the past month when you have had serious thoughts about ending your life?: No Have you ever, in your whole life, tried to kill yourself or made a suicide attempt?: No PHQ-9 Total Score: 0 Electronically signed by: Yesenia Coleman MD Patient ID: Suad Webb is a 20 y.o. male. His chief complaint(s) include: 20 YEAR WELL CHILD (bloodwork/Sports form given) and Concussion Assessment 1. Routine general medical examination at a health care facility 2. Other iron deficiency anemia Plan Suad was seen today for 20 year well child and concussion. Diagnoses and all orders for this visit: Routine general medical examination at a health care facility - Hearing Screening - PHQ9 Assessment With Score - Health Risk Assessment - CRAFFT Other iron deficiency anemia - Venipuncture - Complete Blood Count with Diff (Clinic Collect) - Ferritin (Clinic Collect) - POCT urinalysis dipstick Return in about 1 year (around 12/19/2021) for well check. Needs CBC and Ferritin for school ?Varicella #2 vaccine- may return for this/ Check urine dip at that time Concussion Subjective HPI Comments: Concussion? In a pool hit head on shallow end while playing about a week. Now having BROWN but resolving, has had issue with though feeling mentally foggy. He is accompanied by his mother. Independent history obtained from mother. 20 YEAR WELL CHILD Education: Suad is doing well. (Starting [employer] in fall). Activities & Sports: (CC at [employer]). Drugs: Suad does not use tobacco. Suicidality: Suad has ways to cope with stress. Output Urine and Stool Pattern: Urine and Stool Pattern: Normal stool pattern, normal urine pattern. Teen Anticipatory Guidance The following anticipatory guidance was reviewed during the visit: Nutrition: limit junk food/fast food and soft drinks. Concussion Primary Care Review of Systems Objective Vital Signs 12/19/20 0752 BP: 124/65 Pulse: 64 Weight: 64.8 kg Height: 176.5 cm Body mass index is 20.8 kg/m . Physical Exam Constitutional: He appears well. He is active. No distress. HENT: Head: Atraumatic. Ears: Right Ear: Tympanic membrane and external ear normal. Left Ear: Tympanic membrane and external ear normal. Nose: Nose normal. Mouth/Throat: Mucous membranes are moist. Dentition is normal. Oropharynx is clear. Eyes: Conjunctivae and EOM are normal. No strabismus. Pupils are equal, round, and reactive to light. Neck: Neck supple. Thyroid normal. Cardiovascular: Normal rate, regular rhythm, S1 normal and S2 normal. Pulses are palpable. Heart murmur not heard. Pulmonary/Chest: Breath sounds normal. No respiratory distress. Exhibits no deformity. Abdominal: Soft. Bowel sounds are normal. He exhibits no distension and no mass. There is no hepatosplenomegaly. There is no abdominal tenderness. Genitourinary: Testes and penis normal. No in (more content not included)... [facility] SUAD WEBB ([id number]) 4 M Date Time Provider Department 01/27/19 1:15 PM MELBA GUAJARDO) [facility] During your visit today, we recorded the following information about you: Temperature Pulse Respiration Blood pressure 100.3 degrees 68/minute 16/minute 120/64 Weight 60.8 kg Melba Guajardo PA-C 01/27/2019 1:34 PM Signed Subjective HPI Patient presents with a chief complaint of fever, chills, nausea sore throat and cough over the past couple of days. Highest temperature was 103 yesterday. He did have Tylenol about 5 hours ago. Temperature here is 100.3. No abdominal pain. No diarrhea. No sick contacts. He is here with mom. Review of Systems Constitutional: Positive for chills, fever and malaise/fatigue. HENT: Positive for sore throat. Negative for congestion, ear pain and sinus pain. Eyes: Negative. Respiratory: Positive for cough. Negative for sputum production, shortness of breath and wheezing. Cardiovascular: Negative. Negative for chest pain. Gastrointestinal: Negative. Genitourinary: Negative. All other systems reviewed and are negative. PAST MEDICAL HISTORY Diagnosis Date - NEGATIVE MEDICAL HISTORY - PMH - PAST MEDICAL HISTORY OF Normal Color Vision Current Outpatient Medications Medication Sig Dispense Refill - sertraline (ZOLOFT) 50 mg tablet Take 50 mg by mouth once daily. - ALBUTEROL INHALATION Inhale as instructed. - albuterol HFA (VENTOLIN HFA) 90 mcg/actuation inhaler Inhale 2 Puffs as instructed every 4 hours as needed for Wheezing/Shortness of Breath. 1 Inhaler 0 - PEDIATRIC MULTIVITAMIN COMB#30 (GUMMIES CHILDREN MULTIVITAMIN ORAL) Take 3 tablets by mouth once daily. No current facility-administered medications for this visit. PAST SURGICAL HISTORY Procedure Laterality Date - PAST SURGICAL HISTORY OF 04/2002 Circumcision FAMILY HISTORY Problem Relation Age of Onset - Cancer Paternal Grandmother COLON - Social History Tobacco Use - Smoking status: Never Smoker - Smokeless tobacco: Never Used Substance Use Topics - Alcohol use: No - Drug use: No BP 120/64 Pulse 68 Temp 37.9 ?C (100.3 ?F) (Tympanic) Resp 16 Wt 60.8 kg (134 lb) SpO2 100% Objective Physical Exam Constitutional: He is oriented to person, place, and time and well-developed, well-nourished, and in no distress. HENT: Head: Normocephalic and atraumatic. Right Ear: Tympanic membrane, external ear and ear canal normal. Left Ear: Tympanic membrane, external ear and ear canal normal. Nose: Nose normal. Mouth/Throat: Uvula is midline and mucous membranes are normal. Posterior oropharyngeal erythema present. No oropharyngeal exudate, posterior oropharyngeal edema or tonsillar abscesses. Neck: Normal range of motion. Neck supple. Cardiovascular: Normal rate, regular rhythm and normal heart sounds. Pulmonary/Chest: Effort normal and breath sounds normal. Lymphadenopathy: He has no cervical adenopathy. Neurological: He is alert and oriented to person, place, and time. Skin: Skin is warm and dry. No rash noted. Psychiatric: Affect normal. Nursing note and vitals reviewed. ASSESSMENT/PLAN: 1. Sore throat - ICD9: 462, ICD10: J02.9 - suspect viral - Rapid Strep negative in the office today and Throat culture pending - Discussed supportive care treatment with fluids, rest and analgesia. - The patient may also use OTC cough and cold meds as needed. - The patient should follow up in one week if symptoms persist or worsen - GROUP A STREPTOCOCCUS BY PCR - RAPID STREP TEST B/O Melba Guajardo PA-C Referring Provider: SELF [200] Allergies As of Date: 01/27/2019 Noted Allergy Reaction SEASONAL ALLERGIES 03/17/2009 5 - Intolerance Date Reviewed: 01/27/2019 Reviewed by: Jeanne Ramey Ma - Fully Assessed Reason for Visit: Cough [28] Cmt: sore throat, fever and no appetite x 2 days Primary Visit Diagnosis:Sore throat [J02.9] Order(s):GROUP A STREPTOCOCCUS BY PCR [SQGASPCR] Order #: [id number] RAPID STREP TEST B/O [[id number]] Order #: [id number] Prescriptions as of 01/27/2019 Sig: SERTRALINE 50 MG TABLET Take 50 mg by mouth once amaya* ALBUTEROL INHALATION Inhale as instructed. ALBUTEROL SULFATE HFA 90 MCG/* Inhale 2 Puffs as instructed * GUMMIES CHILDREN MULTIVITAMIN* Take 3 tablets by mouth once * Problem List As Of Date: 01/27/2019 (None) Encounter Status:Closed by MELBA GUAJARDO PA-C on 01/27/19 Normal [facility] Group A Strep by PCRon 01-27 GAS Specimen Source Throat Swab Normal [facility] Comment on above: Performed By: #### G ASPCR #### [facility] [address] [address] Group A Strep PCR Negative Normal [facility] Comment on above: Result Comment: This test was developed and its performance characteristics determined by [facility] [place] ([facility]). It has not been cleared or approved by the FDA. [facility] is regulated under CLIA as qualified to perform high complexity testing. This test is used for clinical purposes. It should not be regarded as investigational or for research. Performed By: #### G ASPCR #### [facility] [address] [id number] PROGRESSon 01-27-2019 PROGRESS HNO ID: [id number] Author: Melba Rodríguez) Daniel Service: ? Author Type: Physician [place] Staff Type: Progress Notes Filed: 01/27/2019 1:34 PM Note Text: Subjective HPI Patient presents with a chief complaint of fever, chills, nausea sore throat and cough over the past couple of days. Highest temperature was 103 yesterday. He did have Tylenol about 5 hours ago. Temperature here is 100.3. No abdominal pain. No diarrhea. No sick contacts. He is here with mom. Review of Systems Constitutional: Positive for chills, fever and malaise/fatigue. HENT: Positive for sore throat. Negative for congestion, ear pain and sinus pain. Eyes: Negative. Respiratory: Positive for cough. Negative for sputum production, shortness of breath and wheezing. Cardiovascular: Negative. Negative for chest pain. Gastrointestinal: Negative. Genitourinary: Negative. All other systems reviewed and are negative. PAST MEDICAL HISTORY Diagnosis Date - NEGATIVE MEDICAL HISTORY - PMH - PAST MEDICAL HISTORY OF Normal Color Vision Current Outpatient Medications Medication Sig Dispense Refill - sertraline (ZOLOFT) 50 mg tablet Take 50 mg by mouth once daily. - ALBUTEROL INHALATION Inhale as instructed. - albuterol HFA (VENTOLIN HFA) 90 mcg/actuation inhaler Inhale 2 Puffs as instructed every 4 hours as needed for Wheezing/Shortness of Breath. 1 Inhaler 0 - PEDIATRIC MULTIVITAMIN COMB#30 (GUMMIES CHILDREN MULTIVITAMIN ORAL) Take 3 tablets by mouth once daily. No current facility-administered medications for this visit. PAST SURGICAL HISTORY Procedure Laterality Date - PAST SURGICAL HISTORY OF 04/2002 Circumcision FAMILY HISTORY Problem Relation Age of Onset - Cancer Paternal Grandmother COLON - Social History Tobacco Use - Smoking status: Never Smoker - Smokeless tobacco: Never Used Substance Use Topics - Alcohol use: No - Drug use: No BP 120/64 Pulse 68 Temp 37.9 ?C (100.3 ?F) (Tympanic) Resp 16 Wt 60.8 kg (134 lb) SpO2 100% Objective Physical Exam Constitutional: He is oriented to person, place, and time and well-developed, well-nourished, and in no distress. HENT: Head: Normocephalic and atraumatic. Right Ear: Tympanic membrane, external ear and ear canal normal. Left Ear: Tympanic membrane, external ear and ear canal normal. Nose: Nose normal. Mouth/Throat: Uvula is midline and mucous membranes are normal. Posterior oropharyngeal erythema present. No oropharyngeal exudate, posterior oropharyngeal edema or tonsillar abscesses. Neck: Normal range of motion. Neck supple. Cardiovascular: Normal rate, regular rhythm and normal heart sounds. Pulmonary/Chest: Effort normal and breath sounds normal. Lymphadenopathy: He has no cervical adenopathy. Neurological: He is alert and oriented to person, place, and time. Skin: Skin is warm and dry. No rash noted. Psychiatric: Affect normal. Nursing note and vitals reviewed. ASSESSMENT/PLAN: 1. Sore throat - ICD9: 462, ICD10: J02.9 - suspect viral - Rapid Strep negative in the office today and Throat culture pending - Discussed supportive care treatment with fluids, rest and analgesia. - The patient may also use OTC cough and cold meds as needed. - The patient should follow up in one week if symptoms persist or worsen - GROUP A STREPTOCOCCUS BY PCR - RAPID STREP TEST B/O Melba Guajardo PA-C Normal [facility] Vital Signs Date Time Vital Sign Value Performing Clinician Jessica stovall 04-29-2023 16:07-0400 Body temperature 97.81 [degF] Angeline Kelley DO Work Phone: [facility] 04-29-2023 16:07-0400 Body weight 69.4 kg Angeline Kelley DO Work Phone: [facility] 04-29-2023 16:07-0400 Diastolic blood pressure 68 mm[Hg] Angeline Kelley DO Work Phone: [facility] 04-29-2023 16:07-0400 Heart rate 45 /min Angeline Dickn DO Work Phone: [facility] 04-29-2023 16:07-0400 Respiratory rate 16 /min Angeline Dickn DO Work Phone: [facility] 04-29-2023 16:07-0400 SaO2% (BldA) [Mass fraction] 100 % Angeline Reddyughn DO Work Phone: [facility] 04-29-2023 16:07-0400 Systolic blood pressure 110 mm[Hg] Angeline Reddyughn DO Work Phone: [facility] Encounters Encounter Date Encounter Type Care Provider Facility Start: 01-22-2024 End: 01-22-2024 ambulatory [facility] Facility:[facility] Start: 06-27-2023 End: 06-27-2023 ambulatory [facility] Work Phone: Start: 06-27-2023 End: 06-27-2023 Patient encounter procedure [facility] Start: 06-27-2023 End: 06-27-2023 ambulatory [facility] Facility:[facility] Start: 04-29-2023 End: 04-29-2023 ambulatory YESENIA MALONEALL [facility] Facility:[id number] Start: 04-29-2023 End: 04-29-2023 Patient encounter procedure Angelineherrera Cansecofortino Kelley DO Work Phone: [facility] Comment on above: Bronchitis (Primary Dx) Start: 07-07-2022 End: 07-07-2022 ambulatory [facility] Work Phone: Start: 07-07-2022 End: 07-07-2022 Patient encounter procedure [facility] Start: 05-11-2021 Patient encounter procedure Dione Fitch MD Work Phone: [facility] Start: 05-11-2021 Progress Note Dione Fitch MD Work Phone: [facility] Plan of Treatment Date Care Activity Detail Author Start: 01-08-2025 Urine microalbumin profile DTa P,Tdap,Td Vaccine (7 - Td or Tdap) [facility] Start: 03-03-2023 Covid-19 Vaccine ( season) Covid-19 Vaccine ( season) [facility] Start: 07-03-2022 Depression Assessment Depression Ass essment [facility] Start: 03-03-2022 Influenza vaccination INFLUENZA (Sea son Ended) [facility] Start: 2020 HEPATITIS C SCREENING HEPATITIS C SC REENING [facility] Start: 2020 HIV SCREENING HIV SCREENING [facility] Start: 2018 Meningococcal B Vacc ine: Consider Based On Risk (1 of 2 - Patient Seeks Protection) Meningococcal B Vaccine: Consider Based On Risk (1 of 2 - Patient Seeks Protection) [facility] Start: 2016 PEDS TO ADULT TRANSI TION ANNUAL ASSESSMENT PEDS TO ADULT TRANSITION ANNUAL ASSESSMENT [facility] Start: 2014 Adult depression scr eening assessment DEPRESSION SCREENING [facility] Start: 2014 PEDS TO ADULT TRANSI TION INITIAL DISCUSSION PEDS TO ADULT TRANSITION [facility]IAL DISCUSSION [facility] [facility] Start: 2013 HPV VACCINE (1 - Mal e 2-dose series) HPV VACCINE (1 - Male 2-dose series) [facility] Start: 2013 Urine microalbumin profile DTAP,TDAP ,TD (6 - Tdap) [facility] Start: 2011 HPV Vaccine (1 - Mal e 2-dose series) HPV Vaccine (1 - Male 2-dose series) [facility] Start: 2007 COVID-19 VACCINE (#1) COVID-19 VACCI NE (#1) [facility] Start: 03-07-2003 Hepatitis B Vaccine (3 of 3 - 3-dose series) Hepatitis B Vaccine (3 of 3 - 3-dose series) [facility] Immunizations Immunization Date Immunization Notes Care Provider Constantino austin 04-01-2011 influenza virus vaccine, live, attenuated, for intranasal use Dione Fitch MD Work Phone: [facility] Work Phone: 06-15-2009 novel [id number], all formulations Dione Fitch MD Work Phone: [facility] Work Phone: 05-04-2009 influenza virus vaccine, live, attenuated, for intranasal use Dione Fitch MD Work Phone: [facility] Work Phone: 06-10-2008 influenza virus vaccine, live, attenuated, for intranasal use Dione Fitch MD Work Phone: [facility] Work Phone: 09-10-2007 diphtheria, tetanus toxoids and acellular pertussis vaccine Dione Fitch MD Work Phone: [facility] Work Phone: 09-10-2007 measles, mumps and rubella virus vaccine Dione Fitch MD Work Phone: [facility] Work Phone: 09-10-2007 poliovirus vaccine, inactivated Dione Fitch MD Work Phone: [facility] Work Phone: 06-14-2007 influenza virus vaccine, live, attenuated, for intranasal use Dione Fitch MD Work Phone: [facility] Work Phone: 06-30-2006 influenza virus vaccine, unspecified formulation Dione Fitch MD Work Phone: [facility] Work Phone: 06-17-2005 influenza virus vaccine, unspecified formulation Dione Fitch MD Work Phone: [facility] Work Phone: 07-16-2004 influenza virus vaccine, unspecified formulation Dione Fitch MD Work Phone: [facility] 07-23-2003 diphtheria, tetanus toxoids and acellular pertussis vaccine Dione Fitch MD Work Phone: [facility] 07-23-2003 haemophilus influenz ae type b vaccine, HbOC conjugate Dione Fitch MD Work Phone: [facility] 07-23-2003 pneumococcal conjuga te vaccine, 7 valent Dione Fitch MD Work Phone: [facility] 04-16-2003 measles, mumps and rubella virus vaccine Dione Fitch MD Work Phone: [facility] 04-16-2003 varicella virus vaccine Aldo Fitch MD Work Phone: [facility] 01-10-2003 hepatitis B vaccine, pediatric or pediatric/adolescent dosage Dione Fitch MD Work Phone: [facility] Work Phone: 2002 diphtheria, tetanus toxoids and acellular pertussis vaccine Dione Fitch MD Work Phone: [facility] 2002 haemophilus influenz ae type b vaccine, HbOC conjugate Dione Fitch MD Work Phone: [facility] 2002 pneumococcal conjuga te vaccine, 7 eufemia Fitch MD Work Phone: [facility] 2002 poliovirus vaccine, inactivated Dione Fitch MD Work Phone: [facility] Work Phone: 2002 diphtheria, tetanus toxoids and acellular pertussis vaccine Dione Fitch MD Work Phone: [facility] 2002 haemophilus influenz ae type b vaccine, HbOC conjugate Dione Fitch MD Work Phone: [facility] 2002 pneumococcal conjuga te vaccine, 7 valent Dione Fitch MD Work Phone: [facility] 2002 poliovirus vaccine, inactivated Dione Fitch MD Work Phone: [facility] Work Phone: 2002 diphtheria, tetanus toxoids and acellular pertussis vaccine Dione Fitch MD Work Phone: [facility] 2002 haemophilus influenz ae type b vaccine, HbOC conjugate Dione Fitch MD Work Phone: [facility] 2002 pneumococcal conjuga te vaccine, 7 valent Dione Fitch MD Work Phone: [facility] 2002 poliovirus vaccine, inactivated Dione Fitch MD Work Phone: [facility] Work Phone: 2002 hepatitis B vaccine, pediatric or pediatric/adolescent dosage Dione Fitch MD Work Phone: [facility] Work Phone: 2002 hepatitis B vaccine, pediatric or pediatric/adolescent dosage Dione Fitch MD Work Phone: [facility] Work Phone: Payers Date Payer Category Payer Unknown [id number] 2023 Self-pay [id number] 2023 Unknown [employer] [id number] 2023-Present [phone] [address] [place] [address] Indemnity [id number] 2023 Unknown [id number] 2020 Private Health Insurance JAKI Tamayo DAXAHerrera OAP [id number] 2020-Present [phone] [address] [place] [address] Open Access [id number] Private Health Insurance CIGMARIA ALEJANDRA [id number] [place] [id number] Unknown [id number] Unknown [id number] Social History Date Type Detail [facility] Start: 01-27-2019 End: 04-29-2023 Alcohol intake Current non-drinker of alcohol (finding) [facility] Start: 2002 Sex Assigned At Not on file [facility] [place] Start: 04-26-2017 Tobacco smoking stat [facility] Unknown if ever smoked [facility] Start: 2002 Sex Assigned At Male [facility] Start: 06-09-2020 End: 04-29-2023 History of Social function [facility] Start: 06-09-2020 End: 04-29-2023 Tobacco use panel [facility] National Score (1-10 0), lower number is lower risk Not on file [facility] Progress note 04-29-2023 Note Date & Type Note Facility 04-29-2023 Note HNO ID: [id number] Author: Angeline Kelley, DO Service: ? Author Type: Physician Type: Progress Notes Filed: 04/29/2023 4:38 PM Note Text: Suad Webb is a 23 year old MALE who presents with Nasal Congestion (Chest congestion heavy chest head ache 3 days notices increased labor in breathing when running ) HPI PAST MEDICAL HISTORY Diagnosis Date NEGATIVE MEDICAL HISTORY PMH - PAST MEDICAL HISTORY OF Normal Color Vision There is no problem list on file for this patient. Current Outpatient Medications Medication Sig Dispense Refill azithromycin (ZITHROMAX) 500 mg tablet Take 1 tablet by mouth once daily for 5 days. 5 tablet 0 dexAMETHasone (DECADRON) 4 mg tablet Take 1 tablet by mouth once daily for 4 days. 4 tablet 0 sertraline (ZOLOFT) 50 mg tablet Take 50 mg by mouth once daily. (Patient not taking: Reported on 04/29/2023) ALBUTEROL INHALATION Inhale as instructed. (Patient not taking: Reported on 04/29/2023) albuterol HFA (VENTOLIN HFA) 90 mcg/actuation inhaler Inhale 2 Puffs as instructed every 4 hours as needed for Wheezing/Shortness of Breath. (Patient not taking: Reported on 04/29/2023) 1 Inhaler 0 PEDIATRIC MULTIVITAMIN COMB#30 (GUMMIES CHILDREN MULTIVITAMIN ORAL) Take 3 tablets by mouth once daily. (Patient not taking: Reported on 04/29/2023) No current facility-administered medications for this visit. Social History Tobacco Use Smoking status: Never Smokeless tobacco: Never Substance Use Topics Alcohol use: No Drug use: No Alcohol Use: No Tobacco Use: Never FAMILY HISTORY Problem Relation Age of Onset Cancer Paternal Grandmother COLON - Review of Systems Constitutional: Positive for chills, fever and malaise/fatigue. HENT: Positive for congestion, sinus pain and sore throat. Respiratory: Positive for cough and sputum production. All other systems reviewed and are negative. BP 110/68 Pulse 45 Temp 97.8 Resp 16 Wt 153 lb (69.4kg) SpO2 100% Physical Exam Vitals and nursing note reviewed. Constitutional: Appearance: Normal appearance. HENT: Head: Normocephalic. Right Ear: Tympanic membrane normal. Left Ear: Tympanic membrane normal. Nose: Congestion and rhinorrhea present. Mouth/Throat: Pharynx: Posterior oropharyngeal erythema present. Eyes: Extraocular Movements: Extraocular movements intact. Pupils: Pupils are equal, round, and reactive to light. Cardiovascular: Rate and Rhythm: Normal rate and regular rhythm. Pulses: Normal pulses. Heart sounds: Normal heart sounds. Pulmonary: Breath sounds: Rhonchi present. Musculoskeletal: General: Normal range of motion. Lymphadenopathy: Cervical: Cervical adenopathy present. Skin: General: Skin is warm. Capillary Refill: Capillary refill takes 2 to 3 seconds. Neurological: General: No focal deficit present. ASSESSMENT/PLAN: 1. Bronchitis - ICD9: 490, ICD10: J40 - AZITHROMYCIN 500 MG TABLET - DEXAMETHASONE 4 MG TABLET Angeline Kelley [facility] History of Present illness Narrative 04-29-2023 Angeline Kelley, - 04/29/2023 4:37 PM EDT Note Date & Type Note Facility 04-29-2023 History of Presen t illness Narrative Suad Webb is a 23 year old MALE who presents with Nasal Congestion (Chest congestion heavy chest head ache 3 days notices increased labor in breathing when running ) HPI PAST MEDICAL HISTORY Diagnosis Date NEGATIVE MEDICAL HISTORY PMH - PAST MEDICAL HISTORY OF Normal Color Vision There is no problem list on file for this patient. Current Outpatient Medications Medication Sig Dispense Refill azithromycin (ZITHROMAX) 500 mg tablet Take 1 tablet by mouth once daily for 5 days. 5 tablet 0 dexAMETHasone (DECADRON) 4 mg tablet Take 1 tablet by mouth once daily for 4 days. 4 tablet 0 sertraline (ZOLOFT) 50 mg tablet Take 50 mg by mouth once daily. (Patient not taking: Reported on 04/29/2023) ALBUTEROL INHALATION Inhale as instructed. (Patient not taking: Reported on 04/29/2023) albuterol HFA (VENTOLIN HFA) 90 mcg/actuation inhaler Inhale 2 Puffs as instructed every 4 hours as needed for Wheezing/Shortness of Breath. (Patient not taking: Reported on 04/29/2023) 1 Inhaler 0 PEDIATRIC MULTIVITAMIN COMB#30 (GUMMIES CHILDREN MULTIVITAMIN ORAL) Take 3 tablets by mouth once daily. (Patient not taking: Reported on 04/29/2023) No current facility-administered medications for this visit. Social History Tobacco Use Smoking status: Never Smokeless tobacco: Never Substance Use Topics Alcohol use: No Drug use: No Alcohol Use: No Tobacco Use: Never FAMILY HISTORY Problem Relation Age of Onset Cancer Paternal Grandmother COLON - Review of Systems Constitutional: Positive for chills, fever and malaise/fatigue. HENT: Positive for congestion, sinus pain and sore throat. Respiratory: Positive for cough and sputum production. All other systems reviewed and are negative. BP 110/68 Pulse 45 Temp 97.8 Resp 16 Wt 153 lb (69.4kg) SpO2 100% Physical Exam Vitals and nursing note reviewed. Constitutional: Appearance: Normal appearance. HENT: Head: Normocephalic. Right Ear: Tympanic membrane normal. Left Ear: Tympanic membrane normal. Nose: Congestion and rhinorrhea present. Mouth/Throat: Pharynx: Posterior oropharyngeal erythema present. Eyes: Extraocular Movements: Extraocular movements intact. Pupils: Pupils are equal, round, and reactive to light. Cardiovascular: Rate and Rhythm: Normal rate and regular rhythm. Pulses: Normal pulses. Heart sounds: Normal heart sounds. Pulmonary: Breath sounds: Rhonchi present. Musculoskeletal: General: Normal range of motion. Lymphadenopathy: Cervical: Cervical adenopathy present. Skin: General: Skin is warm. Capillary Refill: Capillary refill takes 2 to 3 seconds. Neurological: General: No focal deficit present. ASSESSMENT/PLAN: 1. Bronchitis - ICD9: 490, ICD10: J40 - AZITHROMYCIN 500 MG TABLET - DEXAMETHASONE 4 MG TABLET Angeline Kelley documented in this encounter [facility] History of Present illness Narrative 05-11-2021 Dione Fitch MD - 05/11/2021 4:56 PM EST Note Date & Type Note Facility 05-11-2021 History of Present illness Narrative DATE OF SERVICE: 05/09/2021 REASON FOR VISIT: Sore throat. HISTORY OF PRESENT ILLNESS: This is a 21-year-old male complaining of sore throat, congestion, drainage which has been going on for the last 2 weeks. But in the last 3 days his symptoms have increased. He feels a lot of pressure and coughing up some mucus. Sometimes he feels some discomfort in his chest and also has headache. No shortness of breath. No vomiting or diarrhea. No change in taste and smell. REVIEW OF SYSTEMS: Normal. ALLERGIES: NKA. MEDICATIONS: None. PHYSICAL EXAMINATION: He is awake and alert. Not in distress. No dyspnea. Temperature 97.9, blood pressure 124/72, pulse 73, respirations 16, pulse ox 99% on room air. Pain score 0 out of 10. HEENT is remarkable for moderate nasal congestion. Throat was not injected. Mild postnasal drip. Mild paranasal sinus tenderness. Chest: Clear to auscultation. Heart: Regular, rate, and rhythm. ASSESSMENT: Acute sinusitis. PLAN: Clinical findings discussed with the patient in detail. I gave him amoxicillin 875 mg twice a day for 10 days with no refills. He can continue [id number] medication as needed. Drink a lot of fluids. Use saline nasal spray. Follow with his doctor. The patient understands and agreed. Dione Fitch MD [id number] SSI File#: [id number] END OF DOCUMENT / CHANGE LOG FOLLOWS Last Edited By Elec. Signed By Dione Fitch MD #[id number] Dione Fitch MD #[id number] on 05/12/2021 19:29 ET on 05/12/2021 19:29 ET Revision Number - 2 ^^^ Verified/Reviewed by [id number]/12/[id number] [facility] PATIENT NAME: SUAD WEBB [address] [facility] [address] MEDICAL REC #: [id number] [place] [address] [facility] REPORT [facility] PHYSICIAN documented in this encounter [facility] Evaluation note Note Date & Type Note Facility Evaluation note No assessment information availa [facility] Work Phone: Evaluation note Note Date & Type Note Facility Evaluation note Diagnosis Bronchitis- Primary Bronchitis, not specified as acute or chronic documented in this encounter [facility] Summary Purpose Family History No Family History Records FoundNo Family History Records FoundNo Family History Records FoundNo Family History Records FoundNo Family History Records FoundNo Family History Records Found Advance Directives No Advanced Directives Records FoundNo Advanced Directives Records FoundNo Advanced Directives Records FoundNo Advanced Directives Records FoundNo Advanced Directives Records FoundNo Advanced Directives Records Found Additional Source Comments (unrecognized sect ion and content) No Status Records FoundNo Status Records FoundNo Status Records FoundNo Status Records FoundNo Status Records FoundNo Status Records Found INFORMATION SOURCE (unrecogn ized section and content) DATE CREATED AUTHOR 02/02/2019 [facility] DATE CREATED AUTHOR AUTHOR'S ORGANIZ ATION 08/17/2021 [facility] [place] DATE CREATED AUTHOR AUTHOR'S ORGANIZ ATION 12/18/[address] [facility] DATE CREATED AUTHOR AUTHOR'S ORGANIZ ATION 05/01/2023 [facility] DATE CREATED AUTHOR AUTHOR'S ORGANIZ ATION 10/25/2023 [facility] ([place] DATE CREATED AUTHOR AUTHOR'S ORGANIZ ATION 02/14/2024 [facility] Source Comments (unrecognize d section and content) In the event this informatio n is protected by the Federal Confidentiality of Alcohol and Drug Abuse Patient Records regulations: The Federal rules restrict any use of the information to criminally investigate or prosecute any alcohol or drug abuse patient.[facility] the event this information is protected by the Federal Confidentiality of Alcohol and Drug Abuse Patient Records regulations: The Federal rules restrict any use of the information to criminally investigate or prosecute any alcohol or drug abuse patient.[facility] Care Teams (unrecognized sec tion and content) Classroom Instructional Aide Relationship Specialty Start Date End Date Yesenia Coleman [address] [place] [address] PCP - General Pediatrics 11/20/15 Team Status: Active Member Role Status Dates Dr. Yesenia Coleman MD Family Provider Active Dr. Juno Shaffer MD Primary Care Provider Activ e Team Status: Inactive Member Role Status Dates Dr. Juno Shaffer MD Primary Care Provider, [place] dias Provider Active Classroom Instructional Aide Relationship Specialty Start Date End Date Yesenia Coleman [address] [place] [address] PCP - General Pediatrics 11/20/15 Goals (unrecognized section and content) Goals may be documented in a n alternate sectionGoals may be documented in an alternate section Reason for Visit (unrecogniz ed section and content) Reason Comments Nasal Congestion Chest congestion he brain chest head ache 3 days notices increased labor in breathing when running FOR RECORDS PERTAINING TO PATIENTS WHO ARE OR HAVE BEEN ENROLLED IN A CHEMICAL DEPENDENCY/SUBSTANCEABUSE PROGRAM, SOME INFORMATION MAY BE OMITTED. This clinical summary was aggregated from multiple sources. Caution should be exercised in using it in the provision of clinical care. This summary normalizes information from multiple sources, and as a consequence, information in this document may materially change the coding, format and clinical context of patient data. In addition, data may be omitted in some cases. CLINICAL DECISIONS SHOULD BE BASED ON THE PRIMARY CLINICAL RECORDS. [facility]. provides no warranty or guarantee of the accuracy or completeness of information in this document.
== END | disposition home or self-care (01) ==
PROVIDERS: PCP Family Medicine
DX: Z02.5 Encounter for examination for participation in sport (principal)
CPT/HCPCS: 36415; 82728; 85025